=== PATIENT | female | born 1950 | race Caucasian/White ===

== ENCOUNTER 2018-03-27 10:18 | Emergency (ER) | payer MEDICARE ==
--- NOTE | 2018-03-27 10:39 | ED ---
Back Pain - HPI Summary HPI Summary: 67 y/o female presents to the ED c/o lower back pain, left of the spine, described as a spasmodic, intense pain. The pain is aggravated with movement. Pain started 5 mornings ago. Pt has been treating with ice, advil (3 advil 3x a day) and heating pad. Pt seen at [facility] five days ago, given IM shot which alleviated pain. Pt states she fell 10 days ago. Four mornings ago pt had a syncopal episode in the shower "due to pain". Pt states it gradually became better since it started five days ago, but did work around the house yesterday and the pain came back today, worse than before. - History of Current Complaint Chief Complaint: EDBackInjuryPain Stated Complaint: BACK PAIN Time Seen by Provider: 03/27/18 10:30 Hx Obtained From: Patient Onset/Duration: Lasting Days, Still Present Onset/Duration: Still Present Timing: Constant Back Pain Location: Is Discrete @ - lower back, left of spine Severity Currently: Severe Character: Spasmodic Aggravating Symptom(s): Movement Associated Signs And Symptoms: Positive: Other - syncope - Allergies/Home Medications Allergies/Adverse Reactions: Allergies Allergy/AdvReac Type Severity Reaction Status Date / Time No Known Allergies Allergy Verified 06/12/16 14:53 Home Medications: Home Medications Ammonium Lactate [Purnima-Hydrolac] 12 % TOPICAL DAILY PRN 03/27/18 [History Confirmed 03/27/18] Cyclobenzaprine TAB* [Flexeril 10 MG TAB*] 10 mg PO TID PRN 03/27/18 [History Confirmed 03/27/18] DOXYcycline CAP(*) [DOXYcycline 100MG CAP(*)] 50 mg PO DAILY 03/27/18 [History Confirmed 03/27/18] Ibuprofen TAB* [Advil TAB*] 600 mg PO Q8H PRN 03/27/18 [History Confirmed ] PMH/Surg Hx/FS Hx/Imm Hx Previously Healthy: No Endocrine/Hematology History: Denies: Hx Anticoagulant Therapy, Hx Blood Disorders - Cancer History Cancer Type, Location and Year: unilateral breast cancer 2 years ago - lumpectomy only - in remission w/o immune complications Hx Chemotherapy: No Hx Radiation Therapy: No - Surgical History Surgery Procedure, Year, and Place: breast lumpectomy - 2 years ago Infectious Disease History: No Infectious Disease History: Denies: Hx of Known/Suspected MRSA, History Other Infectious Disease, Traveled Outside the [place] in Last 30 Days - Family History Known Family History: Positive: None - Social History Alcohol Use: Weekly Substance Use Type: Reports: None Smoking Status (MU): Never Smoked Tobacco Review of Systems Constitutional: Negative Eyes: Negative ENT: Negative Cardiovascular: Negative Respiratory: Negative Gastrointestinal: Negative Genitourinary: Negative Musculoskeletal: Other - low back pain Skin: Negative Positive: Syncope Psychological: Normal All Other Systems Reviewed And Are Negative: Yes Physical Exam - Summary Physical Exam Summary: Appearance: Well-appearing, Well-nourished, in pain distress Skin: Warm Eyes: Normal ENT: Normal Neck: Supple, nontender Respiratory: Clear to auscultation Cardiovascular: Regular rate, regular rhythm. Normal S1, S2. Abdomen: Soft, nontender Musculoskeletal: Left L1-L2 paraspinal muscle spasm and tenderness w/o radiculopathy - moderate to severe. Neurological: Normal, A&Ox3 Psychiatric: Normal General: No acute distress Triage Information Reviewed: Yes Vital Signs On Initial Exam: Initial Vitals Temp Pulse Resp BP Pulse Ox 97.8 F 68 17 124/80 99 03/27/18 10:21 03/27/18 10:21 03/27/18 10:21 03/27/18 10:21 03/27/18 10:21 Vital Signs Reviewed: Yes Diagnostics - Vital Signs Vital Signs Temp Pulse Resp BP Pulse Ox 03/27/18 10:21 97.8 F 68 17 124/80 99 - Laboratory Lab Statement: Any lab studies that have been ordered have been reviewed, and results considered in the medical decision making process. Back Pain Course/Dx - Course Assessment/Plan: acute lumbar lack spasm- pain better controlled with PO zanaflex, IV Toradol, Lidoderm patch but pain still present, pain improved with adding PO percocet. - Diagnoses Provider Diagnoses: Spasm of muscle of lower back Discharge - Sign-Out/Discharge Documenting (check all that apply): Patient Departure - Discharge Plan Condition: Improved Disposition: HOME Prescriptions: oxyCODONE/Acetamin 5/325 MG* [Percocet 5/325 TAB*] 1 tab PO Q6H PRN 3 Days #12 tab MDD 4 PRN Reason: Pain Tizanidine HCl 4 mg PO BEDTIME 5 Days #5 capsule Patient Education Materials: Muscle Spasm (ED), Back Pain (ED) Referrals: [facility] [Outside] - 4 Days (PLEASE F/U IN 3-5 DAYS) Additional Instructions: RETURN FOR WORSENING/CHANGING SYMPTOMS - Billing Disposition and Condition Condition: IMPROVED Disposition: Home
[2018-03-27] MEDS ORDERED: Ketorolac INJ* 60 MG/2 ML VIAL IM ONE (11:09)
[2018-03-27] MEDS ORDERED: tiZANidine TAB* 2 MG PO ONE (11:11)
[2018-03-27] MEDS ORDERED: oxyCODONE/Acetamin 5/325 MG* TAB PO ONE (13:10)
[2018-03-27 14:27] VITALS: BP 90/48
[2018-03-27] MEDS ORDERED: Lidocaine Patch REMOVE* 1 NOTE MISC PATCH OFF SCH (21:00)
[2018-03-28] MEDS ORDERED: Lidocaine PATCH 5%* 1 PATCH TRANSDERM SCH (09:00)
== END 2018-03-27 14:26 | disposition home or self-care (01) ==
LOC: ED 10:18
DX: M62.830 Muscle spasm of back (principal); Z85.3 Personal history of malignant neoplasm of breast
CPT/HCPCS: 96372; 99282; A9270-GY; J1885

== ENCOUNTER → 2019-04-09 13:34 | Emergency (ER) | payer MEDICARE, BC ==
[~2019-04-09 13:34] MED LIST: Docusate LIQ* 100 MG/10 ML UDC ONE; Docusate LIQ* 100 MG/10 ML UDC PO SCH; Lisinopril TAB* 10 MG PO ONE; Meclizine TAB* 12.5 MG PO ONE; NS 0.9% 1000 ML** 1,000 ML IV ONE; NS 0.9% 1000 ML** 1,000 ML IV.FLUID IV ONE; Ondansetron INJ* 2 MG/ML VIAL IV ONE; amLODIPine TAB* 5 MG PO ONE; hydrALAZINE IV* 20 MG/ML VIAL IV SLOW PU ONE
[2019-04-09 14:30] LABS: ABS Lymphocytes 1.2 10^3/ul (1.0-4.8); ABS Monocytes 0.3 10^3/ul (0-0.8); ABS Neutrophils 3.7 10^3/ul (1.5-7.7); Eosinophil % 0.9 %; Hematocrit 44 % (35-47); Hemoglobin 15.3 g/dL (12.0-16.0); Lymphocyte % 22.3 %; Mean Corpuscular HGB Conc 35 g/dL (31-36); Mean Corpuscular Hemoglobin 34 pg (27-31); Mean Corpuscular Volume 97 fL (80-97); Nucleated Red Blood Cells % 0.1; Platelet Count 196 10^3/uL (150-450); Red Blood Count 4.55 10^6 /uL (3.70-4.87); Red Cell Distribution Width 13 % (10-15); White Blood Count 5.3 10^3/uL (3.5-10.8)
[2019-04-09 14:52] LABS: INR 0.96 (0.82-1.09)
[2019-04-09 14:53] LABS: Albumin 4.3 g/dL (3.2-5.2); BUN/Creatinine Ratio 21.8 (8-20); Calcium 9.7 mg/dL (8.6-10.3); EGFR African American 88.6 (>60); EGFR Non-African American 73.2 (>60); Globulin 2.2 g/dL (2-4); Potassium 4.1 mmol/L (3.5-5.0); Total Bilirubin 0.7 mg/dL (0.2-1.0); Total Protein 6.5 g/dL (6.4-8.9)
--- NOTE | 2019-04-09 16:12 | ED ---
Dizziness - HPI Summary HPI Summary: The patient is a 68 y/o F presenting to [facility] accompanied by with a chief complaint of sudden onset dizziness with N/V starting two days ago. She reports that over this past weekend, she had some back pain, which she took Flexeril for the night before her current symptoms started. When she woke up after taking the Flexeril, she was suddenly dizzy and had nausea and vomiting. Since then, she has been unable to eat. She was prescribed Meclizine and Zofran by Dr. Storm, but she only took the Meclizine once because she was afraid the Zofran would make her dizzier. Her symptoms are aggravated by movement of her head. She states that she had some sinus congestion a few weeks ago that has since resolved. She denies muffled hearing, tinnitus, ear ache, dental pain, fever, chills, erythema of eyes, sore throat, CP, SOB, cough, abdominal pain, dysuria, hematuria, myalgia, edema, or rash. Hx of osteoporosis. Nonsmoker, occasional EtOH, no substance use. - History Of Current Complaint Chief Complaint: EDDizziness Stated Complaint: DIZZY,VOMITING FOR THREE DAYS PER PT Time Seen by Provider: 04/09/19 14:30 Hx Obtained From: Patient Onset/Duration: Still Present, Suddenly Timing: Days - two Severity Initially: Mild Severity Currently: Moderate Character: Dizzy Aggravating Factor(s): Position Change - moving head Alleviating Factor(s): Rest, Lying Down Associated Signs And Symptoms: Positive: Nausea, Vomiting, Decreased Oral Intake , Other: - POSITIVE: sinus congestion (resolved); NEGATIVE: muffled hearing, tinnitus, ear ache, dental pain, fever, chills, erythema of eyes, sore throat, CP, SOB, cough, abdominal pain, dysuria, hematuria, myalgia, edema, rash. Negative: Chest Pain, SOB, Fever, Chills - Allergies/Home Medications Allergies/Adverse Reactions: Allergies Allergy/AdvReac Type Severity Reaction Status Date / Time No Known Allergies Allergy Verified 04/09/19 14:46 Home Medications: Home Medications Meclizine HCl [Verticalm] 25 mg PO TID 04/09/19 [History Confirmed 04/09/19] PMH/Surg Hx/FS Hx/Imm Hx Endocrine/Hematology History: Denies: Hx Anticoagulant Therapy, Hx Blood Disorders, Hx Diabetes Cardiovascular History: Denies: Hx Hypertension Musculoskeletal History: Reports: Hx Osteoporosis Sensory History: Denies: Hx Deafness Opthamlomology History: Denies: Hx Legally Blind EENT History: Denies: Hx Deafness - Cancer History Cancer Type, Location and Year: unilateral breast cancer 2 years ago - lumpectomy only - in remission w/o immune complications Hx Chemotherapy: No Hx Radiation Therapy: No - Surgical History Surgery Procedure, Year, and Place: breast lumpectomy - 2 years ago Infectious Disease History: No Infectious Disease History: Denies: Hx of Known/Suspected MRSA, History Other Infectious Disease, Traveled Outside the [place] in Last 30 Days - Family History Known Family History: Negative: Cardiac Disease, Hypertension, Diabetes - Social History Alcohol Use: Weekly Alcohol Amount: 1x Hx Substance Use: No Substance Use Type: Reports: None Hx Tobacco Use: No Smoking Status (MU): Never Smoked Tobacco Review of Systems Negative: Fever, Chills Negative: Erythema Positive: Other - POSITIVE: sinus congestion (resolved); NEGATIVE: tinnitus, muffled hearing. Negative: Dental Pain, Sore Throat, Ear Ache Negative: Chest Pain Negative: Shortness Of Breath, Cough Positive: Vomiting, Nausea, Other - decreased oral intake. Negative: Abdominal Pain Negative: dysuria, hematuria Positive: Myalgia - back pain. Negative: Edema Negative: Rash Neurological: Other - dizziness All Other Systems Reviewed And Are Negative: Yes Physical Exam - Summary Physical Exam Summary: Constitutional: Well-developed, Well-nourished, Alert. (-) Distressed Skin: Warm, Dry HENT: Normocephalic; Atraumatic Eyes: Conjunctiva normal Neck: Musculoskeletal ROM normal neck. (-) JVD, (-) Stridor, (-) Tracheal deviation Cardio: Rhythm regular, rate normal, Heart sounds normal; Intact distal pulses; The pedal pulses are 2+ and symmetric. Radial pulses are 2+ and symmetric. (-) Murmur Pulmonary/Chest wall: Effort normal. (-) Respiratory distress, (-) Wheezes, (-) Rales Abd: Soft, (-) tenderness, (-) Distension, (-) Guarding, (-) Rebound Musculoskeletal: (-) Edema Lymph: (-) Cervical adenopathy Neuro: Alert, Oriented x3, Alin-Hallpike positive to left Psych: Mood and affect Normal Triage Information Reviewed: Yes Vital Signs On Initial Exam: Initial Vitals Temp Pulse Resp BP Pulse Ox 97.5 F 64 18 136/88 97 04/09/19 13:42 04/09/19 13:42 04/09/19 13:42 04/09/19 13:42 04/09/19 13:42 Vital Signs Reviewed: Yes Diagnostics - Vital Signs Vital Signs Temp Pulse Resp BP Pulse Ox 04/09/19 16:00 59 14 95 04/09/19 15:55 64 12 162/95 100 04/09/19 15:42 57 18 172/88 97 04/09/19 15:12 82 20 116/93 91 04/09/19 15:11 68 19 148/94 100 04/09/19 15:00 58 17 169/88 99 04/09/19 14:43 53 18 98 04/09/19 13:42 97.5 F 64 18 136/88 97 - Laboratory Lab Results: Lab Results 04/09/19 04/09/19 04/09/19 Range/Units 14:03 14:03 14:03 WBC 5.3 (3.5-10.8) 10^3/uL RBC 4.55 (3.70-4.87) 10^6 /uL Hgb 15.3 (12.0-16.0) g/dL Hct 44 (35-47) % MCV 97 (80-97) fL MCH 34 H (27-31) pg MCHC 35 (31-36) g/dL RDW 13 (10-15) % Plt Count 196 (150-450) 10^3/uL MPV 9.0 (7.4-10.4) fL Neut % (Auto) 69.9 % Lymph % (Auto) 22.3 % [place] % (Auto) 6.4 % Eos % (Auto) 0.9 % Baso % (Auto) 0.5 % Absolute Neuts (auto) 3.7 (1.5-7.7) 10^3/ul Absolute Lymphs (auto) 1.2 (1.0-4.8) 10^3/ul Absolute Monos (auto) 0.3 (0-0.8) 10^3/ul Absolute Eos (auto) 0.0 (0-0.6) 10^3/ul Absolute Basos (auto) 0.0 (0-0.2) 10^3/ul Absolute Nucleated RBC 0.0 10^3/ul Nucleated RBC % 0.1 INR (Anticoag Therapy) 0.96 (0.82-1.09) APTT 27.0 (26.0-38.0) seconds Sodium 138 (135-145) mmol/L Potassium 4.1 (3.5-5.0) mmol/L Chloride 105 (101-111) mmol/L Carbon Dioxide 25 (22-32) mmol/L Anion Gap 8 (2-11) mmol/L BUN 17 (6-24) mg/dL Creatinine 0.78 (0.51-0.95) mg/dL Est GFR ( Amer) 88.6 (>60) Est GFR (Non-Af Amer) 73.2 (>60) BUN/Creatinine Ratio 21.8 H (8-20) Glucose 128 H (70-100) mg/dL Lactic Acid (0.5-2.0) mmol/L Calcium 9.7 (8.6-10.3) mg/dL Total Bilirubin 0.70 (0.2-1.0) mg/dL AST 16 (13-39) U/L ALT 12 (7-52) U/L Alkaline Phosphatase 29 L (34-104) U/L Troponin I (<0.04) ng/mL Total Protein 6.5 (6.4-8.9) g/dL Albumin 4.3 (3.2-5.2) g/dL Globulin 2.2 (2-4) g/dL Albumin/Globulin Ratio 2.0 (1-3) 04/09/19 04/09/19 Range/Units 14:03 14:04 WBC (3.5-10.8) 10^3/uL RBC (3.70-4.87) 10^6 /uL Hgb (12.0-16.0) g/dL Hct (35-47) % MCV (80-97) fL MCH (27-31) pg MCHC (31-36) g/dL RDW (10-15) % Plt Count (150-450) 10^3/uL MPV (7.4-10.4) fL Neut % (Auto) % Lymph % (Auto) % [place] % (Auto) % Eos % (Auto) % Baso % (Auto) % Absolute Neuts (auto) (1.5-7.7) 10^3/ul Absolute Lymphs (auto) (1.0-4.8) 10^3/ul Absolute Monos (auto) (0-0.8) 10^3/ul Absolute Eos (auto) (0-0.6) 10^3/ul Absolute Basos (auto) (0-0.2) 10^3/ul Absolute Nucleated RBC 10^3/ul Nucleated RBC % INR (Anticoag Therapy) (0.82-1.09) APTT (26.0-38.0) seconds Sodium (135-145) mmol/L Potassium (3.5-5.0) mmol/L Chloride (101-111) mmol/L Carbon Dioxide (22-32) mmol/L Anion Gap (2-11) mmol/L BUN (6-24) mg/dL Creatinine (0.51-0.95) mg/dL Est GFR ( Amer) (>60) Est GFR (Non-Af Amer) (>60) BUN/Creatinine Ratio (8-20) Glucose (70-100) mg/dL Lactic Acid 1.3 (0.5-2.0) mmol/L Calcium (8.6-10.3) mg/dL Total Bilirubin (0.2-1.0) mg/dL AST (13-39) U/L ALT (7-52) U/L Alkaline Phosphatase (34-104) U/L Troponin I 0.00 (<0.04) ng/mL Total Protein (6.4-8.9) g/dL Albumin (3.2-5.2) g/dL Globulin (2-4) g/dL Albumin/Globulin Ratio (1-3) Result Diagrams: 04/09/19 14:03 04/09/19 14:03 Lab Statement: Any lab studies that have been ordered have been reviewed, and results considered in the medical decision making process. - Radiology Brain MRI Radiology Interpretation Completed By: Radiologist Summary of Radiographic Findings: Impression: No acute intracranial abnormality. Nonspecific small focus of T2/flair hyperintensity in the white matter of right frontal lobe. ED physician has reviewed this report. - CT Brain CT CT Interpretation Completed By: Radiologist Summary of CT Findings: Impression: No acute intracranial pathology. ED physician has reviewed this report. Re-Evaluation - Re-Evaluation First Eval Re-Evaluation Time: 19:00 Comment: Patient has an unsteady gait with ambulation and BP is elevated. Dizzy Course/Dx - Course Course Of Treatment: Patient is a 68 y/o F with cc of vertigo with nausea and vomiting for the last two days with decreased oral intake and worsening of symptoms secondary to movement of the head. Prescribed Meclizine and Zofran but only took one Meclizine. Denies muffled hearing, tinnitus, ear ache, and dental pain, but had sinus congestion a few weeks ago. Upon physical exam, the patient exhibits positive Alin-Hallpike test to the left. Blood work reveals MCH of 34, BUN/Creatinine of 21.8, glucose of 128, alkaline phosphatase of 29. Brain CT is negative for intracranial pathology. Brain MRI Impression: No acute intracranial abnormality. Nonspecific small focus of T2/flair hyperintensity in the white matter of right frontal lobe. In the ED course, the patient was administered Ns, Zofran, and Meclizine.Upon re-eval at 1900, the patient states that she normally has BP in the 120s systolic. She is unsteady with walking, and she is not having vertigo, however, but she is unsteady on her feet and holding onto the wall. She is diagnosed with hypertensive emergency and cerumen impaction I spoke with Dr. Lynn, and he reports permissive hypertension; he requests holding off on antihypertensives. I discussed the case with Dr. Caal, hospitalist, and she accepts the patient for admission at 1914. Patient agrees with this plan. - Diagnoses Provider Diagnoses: Hypertensive emergency, Cerumen impaction, Gait instability - Provider Notifications Discussed Care Of Patient With: Ryder Lynn - internal medicine Time Discussed With Above Provider: 19:00 Instructed by Provider To: Other - Dr. Lynn reports permissive hypertension; he requests holding off on antihypertensives. I discussed the case with Dr. Caal, hospitalist, and she accepts the patient for admission at 1914. - Critical Care Time Critical Care Time: 30-74 min - 60 minutes Discharge - Sign-Out/Discharge Documenting (check all that apply): Patient Departure - Patient is accepted for admisison by Dr. Caal. Patient Received Moderate/Deep Sedation with Procedure: No - Discharge Plan Condition: Stable Disposition: ADMITTED TO [facility] Referrals: Martir Storm MD [Primary Care Provider] - - Billing Disposition and Condition Condition: STABLE Disposition: Admitted to [facility] - Attestation Statements Document Initiated by Scribe: Yes Documenting Scribe: Chloe Sanchez Provider For Whom Scribe is Documenting (Include Credential): Dr. Milo Rizzo MD Scribe Attestation: Chloe Erickson, scribed for Dr. Miol Rizzo MD on 04/09/19 at 1814. Status of Scribe Document: Ready
[2019-04-09 20:52] VITALS: BP 141/83
--- NOTE | 2019-04-10 09:10 | CONS ---
CC: Dr. Kamari Garland, [place], [place]; Dr. Martir Storm, [facility]. * CONSULTATION REPORT: DATE OF CONSULT: 04/09/19 - EMERGENCY DEPT PRIMARY CARE PROVIDER: Dr. Kamari Garland in [place], [place] and Dr. Martir Storm at [facility]. CHIEF COMPLAINT: Dizziness. HISTORY OF PRESENT ILLNESS: Ms. Kimball is a 68-year-old female who has a history of osteoporosis, who presents to the emergency room with complaints of dizziness. She states that on this past Saturday she had golfed and she was putting her golf bag cart into the back of her vehicle when she twisted and developed discomfort in her back. She took some muscle relaxants on Saturday afternoon. Saturday, she began to feel dizzy which she described as a spinning sensation. She also felt nauseous. Saturday, the dizziness continued and on the morning of 04/09/19, the dizziness was still present. She was unable to eat or really drink anything as she was vomiting up what she took in. She attempted to take meclizine; however, she vomited it back up. She noted that the dizziness was worse with movement but present at a low level continuously. At the time of my evaluation, the patient states that her dizziness was much improved. She was not having any dizziness with sitting up. She has not yet been walking. PAST MEDICAL HISTORY: 1. Osteoporosis. 2. Rosacea. PAST SURGICAL HISTORY: 1. Varicose vein procedure. 2. Left breast lumpectomy x2 for breast cancer. 3. Hysterectomy. MEDICATIONS: 1. Flexeril 10 mg p.o. t.i.d. p.r.n. spasm. 2. Meclizine 25 mg p.o. t.i.d. 3. Doxycycline 50 mg p.o. daily. 4. Evista 1 tab p.o. q.h.s. ALLERGIES: No known drug allergies. FAMILY HISTORY: Mom at the age of 65 of uterine cancer. Dad at the age of 62 of liver disease. SOCIAL HISTORY: The patient is a nonsmoker. She drinks alcohol on occasion. She was a secondary school teacher librarian. She is . She has 2 children. Her is her healthcare proxy. REVIEW OF SYSTEMS: A complete 11-system review of systems is obtained. Pertinent positives and negatives are as per HPI and otherwise negative. PHYSICAL EXAM: Blood pressure 175/97, pulse 65, respirations 22, temp 98.0, O2 sat 98% on room air. General: The patient is a well-developed, middle-aged female seen sitting up in the stretcher, in no acute distress. HEENT: Pupils equal and round. Extraocular muscles intact. Oropharynx is clear. Oral mucosa is moist. Cardiac: Normal S1, S2. Regular rate and rhythm. I do not appreciate any murmurs. There is no lower extremity edema. Pulmonary: Lungs are clear to auscultation bilaterally. Abdomen: Bowel sounds are present. Abdomen is soft, nontender, nondistended. Musculoskeletal: There is no cyanosis or clubbing of the digits. There is full active range of motion of all 4 extremities. Skin is warm and dry. There are no rashes. Neuro: Cranial nerves II through XII are grossly intact. Sensation is intact to light touch throughout. Strength is 5/5 and symmetric in both upper and lower extremities bilaterally. Psych: The patient is alert. She is oriented x3. Affect appears appropriate. DIAGNOSTIC STUDIES/LAB DATA: WBC 5.3, hemoglobin 15.3, hematocrit 44, platelets 196. INR 0.96. Sodium 138, potassium 4.1, chloride 105, CO2 of 25, BUN 17, creatinine 0.78, glucose 128, lactic acid 1.3, calcium 9.7. Bilirubin 0.7, AST 16, ALT 12, alk phos 29. Troponin 0. Albumin 4.3. CT brain: No acute intracranial pathology. MRI brain: No acute intracranial abnormality is seen. There is a nonspecific small focus of T2 FLAIR hyperintensity in the white matter of the right frontal lobe. ASSESSMENT AND PLAN: Ms. Kimball is a 68-year-old female who has no significant past medical history, who presents to the emergency room with complaints of 3 days of persistent dizziness, which is improved at the time of my evaluation. 1. Dizziness. This is likely a combination of orthostatic hypotension. As per ER nurse report, the patient was orthostatic and had vertigo. Her dizziness completely resolved by the time I saw her. We got her up and she ambulated around the unit without any difficulty whatsoever. As her MRI was negative for stroke, I felt that the patient could be discharged home. 2. Hypertension. The patient's blood pressure has been quite elevated in the emergency room. She states typically this is within normal range. I am going to start amlodipine 5 mg p.o. daily. I have asked the patient to follow up with Dr. Storm at the [facility] for followup of her blood pressure. 3. The patient is going to be discharged home. TIME SPENT: 45 minutes was spent on this consultation. [id number]/CPS #: [id number] MTDD
== END | disposition home or self-care (01) ==
LOC: ED 13:34
DX: I16.1 Hypertensive emergency (principal); H61.20 Impacted cerumen, unspecified ear; R26.9 Unspecified abnormalities of gait and mobility; Z79.899 Other long term (current) drug therapy
CPT/HCPCS: 36415; 70450; 70551; 80053; 83605; 84484; 85025; 85610; 85730; 96361; 96374; 96375; 99284; A9270-GY; J0360; J2405